=== PATIENT | female | born 1940 | race Caucasian/White ===

== ENCOUNTER 2020-05-31 07:11 | Day surgery (SDC) | payer MEDICARE ==
[2020-05-25 11:00] LABS: BASOPHILS # (AUTO) 0.1 X10'3 (0-0.2); BASOPHILS % (AUTO) 0.8 % (0-1); EOSINOPHILS # (AUTO) 0.2 X10'3 (0-0.9); EOSINOPHILS % (AUTO) 1.9 % (0-6); LYMPHOCYTES # (AUTO) 1.5 X10'3 (1.1-4.8); LYMPHOCYTES % (AUTO) 18.7 % (21-51); MEAN CORPUSCULAR HEMOGLOBIN 30.2 PG (27.0-31.0); MEAN CORPUSCULAR HGB CONC 33.9 g/dL (33.0-36.5); MEAN CORPUSCULAR VOLUME 89.3 FL (78-98); MEAN PLATELET VOLUME 8.3 FL (7.4-10.4); MONOCYTES # (AUTO) 0.6 X10'3 (0-0.9); MONOCYTES % (AUTO) 7.2 % (2-12); NEUTROPHILS # (AUTO) 5.7 X10'3 (1.8-7.7); NEUTROPHILS % (AUTO) 71.4 % (42-75); PRE OP HEMOGLOBIN 13.9 g/dL (12.0-16.0); PRE OP PLATELET COUNT 212 X10'3 (140-440); RED BLOOD COUNT 4.59 X10'6 (4.20-5.60); RED CELL DISTRIBUTION WIDTH 13.1 % (11.5-14.5)
[2020-05-25 11:13] LABS: PRE OP PROTIME 10.2 SECONDS (9.0-12.0)
[2020-05-25 11:27] LABS: ALKALINE PHOSPHATASE 84 IU/L (46-116); BLOOD UREA NITROGEN 27 MG/DL (7-18); CALCIUM 9.2 MG/DL (8.5-10.1); CHLORIDE 105 MMOL/L (99-107); PRE OP ALT 39 U/L (30-65); PRE OP ANION GAP 2 (8-16); PRE OP AST 19 U/L (10-37); PRE OP BILIRUB, TOTAL 0.5 MG/DL (0.0-1.0); PRE OP GLUCOSE 88 MG/DL (70-104); PRE OP SODIUM 138 MMOL/L (135-145); TOTAL PROTEIN 7.6 G/DL (6.4-8.2); eGFR 54 ML/MIN
[2020-05-25 11:29] LABS: ALBUMIN 3.9 G/DL (3.4-5.0); ALBUMIN/GLOBULIN RATIO 1.1 (1.1-1.5)
[~2020-05-31] VITALS: Ht 165.1 cm; Wt 68.0 kg
[2020-05-31] VITALS (8 sets, daily range): BP systolic 104–129; BP diastolic 47–62
[~2020-05-31 07:11] MED LIST: AMLO10TA13 PO; ATOR40TA72 PO; BUDE10.2 INH; BUPIVAcaine/PF 2.5 mg/ml (0.25%) 30ml vial ONE; CLOP75TA35 PO; DULO60CA65 PO; LOSA100T57 PO; METO-395 PO; MONT10TA26 PO; TIMO5DRO32 EACHEYE; TRAV5DRO EACHEYE; TRAZ-251 PO; ceFAZolin 2gm in dextrose, iso 50 ML IV ONE; famotidine 10mg tablet PO ONE; ringers solution, lacted 1,000 ML IV SCH
[2020-05-31] MEDS ORDERED: famotidine 10mg tablet PO ONE (08:25)
[2020-05-31] MEDS ORDERED: acetaminophen 1,000mg/100ml IV 100 ML IV PRN (08:25)
[2020-05-31] MEDS ORDERED: HYDROmorphone inj. 0.5 MG/0.5 ML DISP.SYRIN IV PRN ×2 (08:25)
[2020-05-31] MEDS ORDERED: morphine 2 MG/ML inj. syringe IV PRN (08:25)
[2020-05-31] MEDS ORDERED: labetalol 20mg/4ml (5mg/ml) syringe IV PRN (08:25)
[2020-05-31] MEDS ORDERED: meperidine/PF 25mg/ml syringe IV PRN (08:25)
[2020-05-31] MEDS ORDERED: morphine 4 MG/ML inj SYRINge IV PRN (08:25)
[2020-05-31] MEDS ORDERED: ringers solution, lacted 1,000 ML IV SCH (08:25)
[2020-05-31] MEDS ORDERED: proCHLORperazine 10 MG/2 ml inj IV PRN (08:25)
[2020-05-31] MEDS ORDERED: hydrALAZINE 20mg/ml inj. IV PRN (08:25)
[2020-05-31] MEDS ORDERED: ondansetron/PF 4mg/2ml inj IV PRN (08:25)
[2020-05-31] MEDS ORDERED: LIDOcaine 0.5% (5mg/ml) 50ml vial ONE (09:16)
[2020-05-31] MEDS ORDERED: fentaNYL/PF 50MCG/1 ML 2ML syringe ONE (10:16)
[2020-05-31] MEDS ORDERED: midazolam 2 mg/2 ml injection ONE (10:37)
[2020-05-31] MEDS ORDERED: propofol inj 20 ML IV ONE ×2 (11:10→11:11)
--- NOTE | 2020-05-31 11:16 | NUR ---
Received from OR via eleni, accompanied by Anesthesiologist Rafael and report given by Anesthesiolgist. Left thumb wrapped, trigger finger remains intact and not operated on. VSS, pt alert and responsive, mask to 5L sats 96%. 20G IVF LR at 100cc/hr. Pt moves fingers independently.
--- NOTE | 2020-05-31 12:16 | NUR ---
PATIENT AND FAMILY AND THEY HAVE VERBALIZED UNDERSTANDING, OPPORTUNITY TO ASK QUESTIONS GIVEN AND PATIENT COMFORTABLE WITH DC. IV TAKEN OUT WITHOUT COMPLICATION. PATIENT HAS MET ALL DC CRITERIA FOR DC HOME. I HAVE REVIEWED D/C INSTRUCTIONS WITH OUT VIA WHEELCHAIR WHERE PATIENT WAS TAKEN HOME WITH ALL BELONGINGS. FAMILY GAVE PATIENT TRANSPORT HOME. PT HAS PAIN PILLS AT HOME PER NEW POST-OP MD ORDERS.
== END 2020-05-31 12:16 | disposition home or self-care (01) ==
LOC: PAS 07:11
PROVIDERS: ATTEND Orthopaedic Surgery Hand Surgery
DX: T84.84XA Pain due to internal orthopedic prosthetic devices, implants and grafts, initial encounter (principal); M19.041 Primary osteoarthritis, right hand; E78.5 Hyperlipidemia, unspecified; I10 Essential (primary) hypertension; J45.909 Unspecified asthma, uncomplicated; G43.909 Migraine, unspecified, not intractable, without status migrainosus; Z86.73 Personal history of transient ischemic attack (TIA), and cerebral infarction without residual deficits; Z87.891 Personal history of nicotine dependence; Z72.89 Other problems related to lifestyle; Z88.5 Allergy status to narcotic agent; Z88.0 Allergy status to penicillin; Z88.1 Allergy status to other antibiotic agents; Z79.899 Other long term (current) drug therapy; Z20.828 Contact with and (suspected) exposure to other viral communicable diseases; Z79.01 Long term (current) use of anticoagulants; Z98.890 Other specified postprocedural states; Z90.710 Acquired absence of both cervix and uterus; Z90.49 Acquired absence of other specified parts of digestive tract; Y83.8 Other surgical procedures as the cause of abnormal reaction of the patient, or of later complication, without mention of misadventure at the time of the procedure; Y92.89 Other specified places as the place of occurrence of the external cause
CPT/HCPCS: 26320; 36415; 71046; 80053; 82948; 85025; 85610; 85730; 87635; 93005; J2001; J2250; J2704; J3010; J3490; A4215; A6449; A7000; J7120

== ENCOUNTER 2020-09-09 15:31 | Emergency (ER) | payer MEDICARE ==
[~2020-09-09] VITALS: Ht 165.1 cm; Wt 71.4 kg
[~2020-09-09 15:31] MED LIST changes: -BUPIVAcaine/PF 2.5 mg/ml (0.25%) 30ml vial ONE; +CLOP75TA34 PO; -CLOP75TA35 PO; +LIDOcaine 1% W/epiNEPHrine 1:100,000 20ml vial ONE; -MONT10TA26 PO; +MONT10TA97 PO; -ceFAZolin 2gm in dextrose, iso 50 ML IV ONE; -famotidine 10mg tablet PO ONE; -ringers solution, lacted 1,000 ML IV SCH
[2020-09-09 15:45] VITALS: BP 114/44
[2020-09-09] MEDS ORDERED: TETanus/Pertussis (Acell)/Diphther VAC/PF (Tdap-Adult) 0.5ml syringe IMVAC ONE (17:30)
== END 2020-09-09 18:26 | disposition home or self-care (01) ==
LOC: ER 15:32
DX: S81.811A Laceration without foreign body, right lower leg, initial encounter (principal); I10 Essential (primary) hypertension; Z20.3 Contact with and (suspected) exposure to rabies; Z88.0 Allergy status to penicillin; Z88.5 Allergy status to narcotic agent; Z88.1 Allergy status to other antibiotic agents; Z79.899 Other long term (current) drug therapy; W45.8XXA Other foreign body or object entering through skin, initial encounter; Y93.89 Activity, other specified; Y92.89 Other specified places as the place of occurrence of the external cause; Y99.8 Other external cause status
CPT/HCPCS: 12002; 90471; 90715; 99283

== ENCOUNTER 2021-05-09 06:41 | Day surgery (SDC) | payer MEDICARE ==
[2021-05-03 14:57] LABS: BASOPHILS # (AUTO) 0.1 X10'3 (0-0.2); BASOPHILS % (AUTO) 0.7 % (0-1); EOSINOPHILS # (AUTO) 0.2 X10'3 (0-0.9); LYMPHOCYTES # (AUTO) 1.9 X10'3 (1.1-4.8); LYMPHOCYTES % (AUTO) 23.2 % (21-51); MEAN CORPUSCULAR HEMOGLOBIN 29.5 PG (27.0-31.0); MEAN CORPUSCULAR HGB CONC 32.5 g/dL (33.0-36.5); MEAN CORPUSCULAR VOLUME 90.7 FL (78-98); MEAN PLATELET VOLUME 8.3 FL (7.4-10.4); MONOCYTES # (AUTO) 0.8 X10'3 (0-0.9); MONOCYTES % (AUTO) 9.1 % (2-12); NEUTROPHILS # (AUTO) 5.5 X10'3 (1.8-7.7); PRE OP HEMATOCRIT 39.5 % (35.0-45.0); PRE OP HEMOGLOBIN 12.9 g/dL (12.0-16.0); PRE OP PLATELET COUNT 226 X10'3 (140-440); RED BLOOD COUNT 4.36 X10'6 (4.20-5.60); RED CELL DISTRIBUTION WIDTH 13.1 % (11.5-14.5)
[2021-05-03 15:08] LABS: ALBUMIN 3.6 G/DL (3.4-5.0); ALBUMIN/GLOBULIN RATIO 1.1 (1.1-1.5); ALKALINE PHOSPHATASE 96 IU/L (46-116); BLOOD UREA NITROGEN 26 MG/DL (7-18); BUN/CREATININE RATIO 22.8 (6.6-38.0); CALCIUM 8.8 MG/DL (8.5-10.1); CHLORIDE 109 MMOL/L (99-107); CREATININE 1.14 MG/DL (0.40-0.90); PRE OP ALT 37 U/L (30-65); PRE OP ANION GAP 7 (8-16); PRE OP AST 20 U/L (10-37); PRE OP BILIRUB, TOTAL 0.3 MG/DL (0.0-1.0); PRE OP GLUCOSE 81 MG/DL (70-104); PRE OP POTASSIUM 4.2 MMOL/L (3.4-5.1); PRE OP SODIUM 146 MMOL/L (135-145); eGFR 46 ML/MIN
[2021-05-09] VITALS (7 sets, daily range): BP systolic 118–139; BP diastolic 59–83
[~2021-05-09] VITALS: Ht 165.1 cm; Wt 78.7 kg
[~2021-05-09 06:41] MED LIST changes: +CALC1CAP21 PO; +DOCUMENT DATE & TIME OF BETA-BLOCKER PO ONE; -LIDOcaine 1% W/epiNEPHrine 1:100,000 20ml vial ONE; +MAGN500C16 PO; +MONT10TA32 PO; -MONT10TA97 PO; +MULT-1085 PO; +POTASSIUM PO; +albuterol 2.5 MG/3 ML nebule NEB PRN; +clindamycin-Cleocin 900mg/D5W 50 ML IV ONE; +famotidine 20mg tablet PO ONE; +ringers solution, lacted 1,000 ML IV SCH
[2021-05-09] MEDS ORDERED: BUPIVAcaine/PF 2.5mg/ml (0.25%) 10ml vial ONE (06:42)
[2021-05-09] MEDS ORDERED: hydrALAZINE 20mg/ml inj. IV PRN (07:20)
[2021-05-09] MEDS ORDERED: morphine 2 MG/ML inj. syringe IV PRN (07:20)
[2021-05-09] MEDS ORDERED: fentaNYL/PF 50MCG/1 ML 2ML syringe IV PRN ×2 (07:20)
[2021-05-09] MEDS ORDERED: LIDOcaine 0.5% (5mg/ml) 50ml vial ONE (07:20)
[2021-05-09] MEDS ORDERED: morphine 4 MG/ML inj SYRINge IV PRN (07:20)
[2021-05-09] MEDS ORDERED: labetalol 20mg/4ml (5mg/ml) syringe IV PRN (07:20)
[2021-05-09] MEDS ORDERED: ondansetron/PF 4mg/2ml inj IV PRN (07:20)
[2021-05-09] MEDS ORDERED: ringers solution, lacted 1,000 ML IV SCH (07:20)
[2021-05-09] MEDS ORDERED: fentaNYL/PF 50MCG/1 ML 2ML syringe ONE ×2 (09:55→11:11)
[2021-05-09] MEDS ORDERED: midazolam 1 mg/ML 2ml injection ONE ×2 (09:56→11:11)
[2021-05-09] MEDS ORDERED: ROPIVAcaine 0.5% (5mg/ml) 30ml vial ONE (09:56)
--- NOTE | 2021-05-09 11:23 | NUR ---
Received from OR via DONNA , accompanied by Anesthesiologist DORIS and report given by Anesthesiolgist. PT. ARRIVED ON 6 L O2 VIA MASK, VSS, AROUSABLE, DENIES PAIN, IV WITH LR INFUSING IN RIGHT WRIST 20 G CDI. FOAM TAPE DRESSING ON SECOND FINGER L. HAND CDI. ICE BAG APPLIED. PT. SLEEPY. Addendum: 05/09/21 at 1134 by Melissa Greene RN Amended: Links added.
--- NOTE | 2021-05-09 12:23 | NUR ---
PT. DISCHARGED HOME VIA TO PRIVATE VEHICLE. ALL DC CRITERIA MET. PT. ALERT ABLE TO DRINK FLUIDS, DENIED PAIN, VSS, SENSATION AND MOVEMENT INTACT. IV REMOVED. FOAM DRESSING ON LEFT 2ND FINGER CDI. PT. ABLE TO TRANSFER TO . ALL INSTRUCTIONS UNDERSTOOD. PT. DENIED NEED TO VOID. Addendum: 05/09/21 at 1226 by Melissa Greene RN Amended: Links added.
== END 2021-05-09 12:23 | disposition home or self-care (01) ==
LOC: PAS 06:41
PROVIDERS: ATTEND Orthopaedic Surgery Hand Surgery
DX: T84.84XA Pain due to internal orthopedic prosthetic devices, implants and grafts, initial encounter (principal); M19.90 Unspecified osteoarthritis, unspecified site; E78.5 Hyperlipidemia, unspecified; I10 Essential (primary) hypertension; J45.909 Unspecified asthma, uncomplicated; F32.9 Major depressive disorder, single episode, unspecified; G43.909 Migraine, unspecified, not intractable, without status migrainosus; I69.354 Hemiplegia and hemiparesis following cerebral infarction affecting left non-dominant side; Z79.899 Other long term (current) drug therapy; Z20.822 Contact with and (suspected) exposure to COVID-19; Z88.5 Allergy status to narcotic agent; Z88.1 Allergy status to other antibiotic agents; Z88.0 Allergy status to penicillin; Z98.890 Other specified postprocedural states; Z87.891 Personal history of nicotine dependence; Z72.89 Other problems related to lifestyle; Z90.49 Acquired absence of other specified parts of digestive tract; Z90.710 Acquired absence of both cervix and uterus; Y83.8 Other surgical procedures as the cause of abnormal reaction of the patient, or of later complication, without mention of misadventure at the time of the procedure; Y92.89 Other specified places as the place of occurrence of the external cause
CPT/HCPCS: 20680; 36415; 80053; 82948; 85025; 93005; 94640; 94760; A6222; J2001; J2250; J3010; J3490; J7120; U0003; U0005; Z7506; Z7508; Z7512; A4215; A4618; A6449; A7000; J2795

== ENCOUNTER 2022-01-22 16:10 | Emergency (ER) | payer MEDICARE ==
[~2022-01-22] VITALS: Ht 165.1 cm; Wt 81.0 kg
[~2022-01-22 16:10] MED LIST changes: -DOCUMENT DATE & TIME OF BETA-BLOCKER PO ONE; -MAGN500C16 PO; +MAGN500C4 PO; +MONT-40 PO; -MONT10TA32 PO; -albuterol 2.5 MG/3 ML nebule NEB PRN; -clindamycin-Cleocin 900mg/D5W 50 ML IV ONE; -famotidine 20mg tablet PO ONE; -ringers solution, lacted 1,000 ML IV SCH
[2022-01-22 18:05] VITALS: BP 151/69
[2022-01-22 18:49] LABS: BASOPHILS # (AUTO) 0.1 X10'3 (0-0.2); BASOPHILS % (AUTO) 0.5 % (0-1); EOSINOPHILS # (AUTO) 0.2 X10'3 (0-0.9); EOSINOPHILS % (AUTO) 1.8 % (0-6); HEMATOCRIT 38.7 % (35.0-45.0); LYMPHOCYTES # (AUTO) 2.2 X10'3 (1.1-4.8); LYMPHOCYTES % (AUTO) 20.9 % (21-51); MEAN CORPUSCULAR HEMOGLOBIN 28.6 PG (27.0-31.0); MEAN CORPUSCULAR HGB CONC 33.5 g/dL (33.0-36.5); MEAN CORPUSCULAR VOLUME 85.4 FL (78-98); MEAN PLATELET VOLUME 8.3 FL (7.4-10.4); MONOCYTES # (AUTO) 0.8 X10'3 (0-0.9); NEUTROPHILS # (AUTO) 7.3 X10'3 (1.8-7.7); NEUTROPHILS % (AUTO) 68.8 % (42-75); PLATELET COUNT 229 X10'3 (140-440); RED BLOOD COUNT 4.53 X10'6 (4.20-5.60); RED CELL DISTRIBUTION WIDTH 13.9 % (11.5-14.5); WHITE BLOOD COUNT 10.6 X10'3 (4.5-11.0)
[2022-01-22 18:52] LABS: ALANINE AMINOTRANSFERASE 42 U/L (12-78); ALBUMIN 3.5 G/DL (3.4-5.0); ALKALINE PHOSPHATASE 95 IU/L (46-116); ANION GAP 7 (8-16); ASPARTATE AMINO TRANSFERASE 22 U/L (10-37); BILIRUBIN,TOTAL 0.2 MG/DL (0.1-1.0); BLOOD UREA NITROGEN 20 MG/DL (7-18); BUN/CREATININE RATIO 20.8 (6.6-38.0); CALCIUM 8.9 MG/DL (8.5-10.1); CHLORIDE 105 MMOL/L (99-107); CREATININE 0.96 MG/DL (0.40-0.90); GLUCOSE 107 MG/DL (70-104); POTASSIUM 3.7 MMOL/L (3.5-5.1); SODIUM 138 MMOL/L (135-145); eGFR 56 ML/MIN
== END 2022-01-22 19:12 | disposition home or self-care (01) ==
LOC: ER 16:11
DX: U07.1 COVID-19 (principal); I10 Essential (primary) hypertension; Z88.0 Allergy status to penicillin; Z88.1 Allergy status to other antibiotic agents; Z79.899 Other long term (current) drug therapy
CPT/HCPCS: 36415; 71045; 80053; 85025; 93005; 99285